=== PATIENT | female | born 1955 | race Caucasian/White ===

== ENCOUNTER 2021-07-12 15:19 | Emergency (ER) | payer MEDICARE, BC ==
[2021-07-12] MEDS ORDERED: Ondansetron PF 4 MG/2 ML Vial ONE (15:25)
== END 2021-07-12 16:55 | disposition home or self-care (01) ==
LOC: NAV ERS 15:19
DX: E86.0 Dehydration (principal); I25.2 Old myocardial infarction; Z79.82 Long term (current) use of aspirin; Z79.899 Other long term (current) drug therapy
CPT/HCPCS: J2405